=== PATIENT | female | born 1940 | race Caucasian/White ===

== ENCOUNTER 2017-09-04 07:07 | Inpatient (IN) | payer MEDICARE ==
[2017-09-04] MEDS ORDERED: Aspirin Low Dose CHEW TAB* 81 MG PO ONE (07:24)
[2017-09-04] MEDS: Nitroglycerin TAB 0.4 MG* 0.4 MG TAB SL ONE ×3 (08:00→08:11)
[2017-09-04 08:05] LABS: Hematocrit 40 % (35-47); Hemoglobin 13.6 g/dl (12.0-16.0); Mean Corpuscular HGB Conc 34 g/dl (31-36); Mean Corpuscular Hemoglobin 34 pg (27-31); Mean Corpuscular Volume 100 fL (80-97); Mean Platelet Volume 9 um3 (7.4-10.4); Red Blood Count 3.94 10^6/ul (4.0-5.4); Red Cell Distribution Width 13 % (10.5-15); White Blood Count 6.4 10^3/ul (3.5-10.8)
[2017-09-04] MEDS ORDERED: Al Hydrox/Mg Hydrox/Simet LIQ* 30 ML UDC PO ONE (08:20)
[2017-09-04] MEDS ORDERED: Acetaminophen TAB* 325 MG PO ONE (08:20)
[2017-09-04] MEDS ORDERED: Lidocaine 2% VISCOUS* 15 ML UDC PO ONE (08:20)
[2017-09-04 08:22] LABS: Albumin 3.9 g/dL (3.2-5.2); BUN/Creatinine Ratio 25.6 (8-20); Calcium 9.7 mg/dL (8.6-10.3); EGFR African American 78.5 (>60); Globulin 3.4 g/dL (2-4); Potassium 4.3 mmol/L (3.5-5.0); Total Bilirubin 0.6 mg/dL (0.2-1.0); Total Protein 7.3 g/dL (6.4-8.9)
[2017-09-04 08:23] LABS: Troponin I 0.03 ng/mL (<0.04)
--- NOTE | 2017-09-04 09:06 | RAD ---
INDICATION: Chest pain COMPARISON: Most recent comparison chest x-rays dated September 26, 2014 TECHNIQUE: Single AP portable view of the chest was obtained. FINDINGS: Image quality is compromised due to the relative inferiority of a portable chest x-ray. The heart and mediastinum exhibit normal size and contour. The lungs are grossly clear. There is no evidence of a large pleural effusion. Visualized bones are normal for the patient's age. IMPRESSION: No radiographic evidence for acute cardiopulmonary abnormality on this portable chest x-ray.
[2017-09-04] MEDS ORDERED: Morphine INJ* 2 MG/ML 1 ML CARPUJECT IV ONE (09:09)
[2017-09-04] MEDS ORDERED: Ondansetron INJ* 2 MG/ML VIAL IV ONE (09:09)
[2017-09-04] MEDS ORDERED: Morphine INJ* 2 MG/ML 1 ML SYRINGE (TWO MG - NEW SYRINGE VERSION) ONE (09:16)
--- NOTE | 2017-09-04 11:21 | ADMNOTE ---
Subjective Date of Service: 09/04/17 Interval History: ADMISSION HISTORY AND PHYSICAL EXAM: Allergies Allergy/AdvReac Type Severity Reaction Status Date / Time MED FOR STRESS TEST Allergy Tachycardia Uncoded 01/28/17 13:39 Home Medications Medication Instructions Recorded Confirmed Type Ascorbic Acid TAB* [Vitamin C 500 mg PO DAILY 09/26/14 09/26/14 History TAB*] Aspirin Low Dose CHEW TAB* 81 mg PO DAILY 09/26/14 09/26/14 History [Aspirin Low Dose TAB*] B-Complex W/ Folic Acid [B Complex] 1 tab PO DAILY 09/26/14 09/26/14 History Levothyroxine TAB* [Synthroid 75 75 mcg PO 0800 09/26/14 09/26/14 History MCG TAB*] Multiple Vitamin [Multivitamins] 1 cap PO DAILY 09/26/14 09/26/14 History HPI: Patient awoke at about 6 AM today to use the BR and felt epigastric discomfort. No assoc sx's. Pain now level 0.5. Never had similar pain before. She does frantz chi, golfs, and walks. Family History: Findings - Mother age 78 afater back surgery, father age 91 of prostate ca. 4 sibs A&W. Social History: Findings - Quit smoking > 30 yrs ago. No alcohol abuse. Review of Systems - Measurements Intake and Output: Intake and Output Last 24 Hours 09/02/17 09/03/17 09/04/17 09/05/17 06:59 06:59 06:59 06:59 Weight 145 lb - Review of Systems Constitutional Symptoms: Negative: Weight Gain, Weight Loss, Weakness, Fatigue, Fever, Night Sweats, Unexplained Falls, Other Dermatology: Positive: Normal HEENT: Positive: Normal Eyes: Positive: Normal Thyroid: Positive: Primary Hypothyroidism Pulmonary: Positive: Normal Cardiology: Positive: Chest Pain Gastroenterology: Positive: Normal Genital - Urinary: Positive: Normal Genitourinay - Female: Positive: Menopause Musculoskeletal: Negative: Joint Pain, Joint Stiffness, Arthritis, Osteoporosis, Low Back Pain , Sciatica, Joint Deformities, Kyphoscoliosis, Other Endocrinology: Positive: Thyroid Problems Hematologic/Lymphatic: Negative: Anemia, Easy Brusing, Hx Leukemia, Hx Lymphoma, Use of Anticoagulant, Use of Antiplatelet Drugs, Other Neurology: Positive: Normal Psychiatry: Positive: Normal Allergic/Immunologic: Negative: Hx Anaphylaxis, Hx Angioedema, Hx Environmental, Hx Seasonal, Athsma, Hx HIV, Immunocompromise, Swollen Glands LymphNodes, Other Objective Vital Signs 09/04/17 09/04/17 09/04/17 07:11 07:17 07:19 Temperature 98.5 F Pulse Rate 84 87 Respiratory 20 15 Rate Blood Pressure 178/101 152/85 (mmHg) O2 Sat by Pulse 97 95 Oximetry 09/04/17 09/04/17 09/04/17 07:30 07:39 08:00 Temperature Pulse Rate 83 83 82 Respiratory 16 19 Rate Blood Pressure 165/83 150/83 (mmHg) O2 Sat by Pulse 97 97 Oximetry 09/04/17 09/04/17 09/04/17 08:08 08:30 09:00 Temperature Pulse Rate 86 85 77 Respiratory 14 14 13 Rate Blood Pressure 124/78 112/61 117/69 (mmHg) O2 Sat by Pulse 95 95 96 Oximetry 09/04/17 09/04/17 09/04/17 09:30 10:00 10:07 Temperature Pulse Rate 79 80 Respiratory 16 20 18 Rate Blood Pressure 111/56 121/71 (mmHg) O2 Sat by Pulse 96 97 Oximetry 09/04/17 09/04/17 09/04/17 10:30 11:00 11:03 Temperature Pulse Rate 75 78 85 Respiratory 17 Rate Blood Pressure 130/76 146/66 (mmHg) O2 Sat by Pulse 97 98 97 Oximetry Oxygen Devices in Use Now: None Appearance: Alert, partly up on ED stretcher. In good spirits. Looks comfortable. Eyes: No Scleral Icterus Neck: NL Appearance and Movements; NL JVP, No Thyroid Enlargement, Masses Respiratory: Symmetrical Chest Expansion and Respiratory Effort, Clear to Auscultation, Clear to Percussion Cardiovascular: NL Sounds; No Murmurs; No JVD, RRR, No Edema, - Abdominal: NL Sounds; No Tenderness; No Distention, No Hepatosplenomegaly, - - no abd or epigastric tenderness Extremities: No Edema, No Clubbing, Cyanosis, - Skin: No Rash or Ulcers, No Nodules or Sclerosis, - Neurological: Alert and Oriented x 3, NL Sensation Result Diagrams: 09/04/17 07:56 09/04/17 07:56 Assess/Plan/Problems-Billing Assessment: - Patient Problems (1) Elevated troponin Current Visit: Yes Status: Acute Code(s): R74.8 - ABNORMAL LEVELS OF OTHER SERUM ENZYMES SNOMED Code(s): 801672935 Comment: LBBB dates to 2010. Discuss[address] with Dr[address] Solomon. Clinically not a STEMI. Echo in AM. Depending on third troponin, may need cardiac cath or echo. Continue ASA which she takes at night. She took 2 extra just before coming to the ED. (2) HTN (hypertension) Current Visit: Yes Status: Acute Code(s): I10 - ESSENTIAL (PRIMARY) HYPERTENSION SNOMED Code(s): 48965277 Comment: Continue irbesartran which she takes at night. (3) History of hypothyroidism Current Visit: No Status: Chronic Code(s): Z86.39 - PERSONAL HISTORY OF ENDO , NUTRITIONAL AND METABOLIC DISEASE SNOMED Code(s): 182694097 Comment: Continue levothyroxine. TSH wnl 09/01/17. 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
[2017-09-04] MEDS ORDERED: Aspirin Low Dose CHEW TAB* 81 MG PO SCH (12:00)
[2017-09-04] MEDS ORDERED: Enoxaparin(*) 40 MG/0.4 ML SYR SUBCUT SCH (12:00)
[2017-09-04] MEDS ORDERED: Levothyroxine TAB* 75 MCG TAB PO ONE (12:00)
[2017-09-04] MEDS ORDERED: Losartan TAB* 25 MG PO ONE (14:31)
[2017-09-04] MEDS ORDERED: Metoprolol Tartrate TAB* 25 MG PO SCH (14:45)
[2017-09-04] MEDS ORDERED: Heparin VIAL(*) 5000 UNITS/ML VIAL (FIVE THOUSAND) IV SCH (15:00)
[2017-09-04] MEDS: Atorvastatin* 80 MG TAB PO SCH (15:10)
[2017-09-04 15:30] LABS: Hematocrit 39 % (35-47); Hemoglobin 12.8 g/dl (12.0-16.0); Mean Corpuscular HGB Conc 33 g/dl (31-36); Mean Corpuscular Hemoglobin 34 pg (27-31); Mean Corpuscular Volume 102 fL (80-97); Mean Platelet Volume 9 um3 (7.4-10.4); Red Blood Count 3.78 10^6/ul (4.0-5.4); Red Cell Distribution Width 13 % (10.5-15); White Blood Count 9.1 10^3/ul (3.5-10.8)
[2017-09-04] MEDS: Heparin DRIP 25,000 UNITS(*) 25,000 UNITS/500 ML BAG IVPB SCH (15:35)
[2017-09-04] MEDS ORDERED: Metoprolol Tartrate TAB* 25 MG PO ONE (15:54)
[2017-09-04] MEDS: Nitroglycerin 0.4 MG/HR PATCH* (10 MG) TRANSDERM SCH (16:10)
--- NOTE | 2017-09-04 18:01 | ED ---
Danyelle Tinoco Edward, scribed for Garrett Flores MD on 09/04/17 at 0724 . HPI Chest Pain - HPI Summary HPI Summary: 76 y/o female BIBA c/o mild CP described as a pressure starting at 05:45 this morning. The pain is rated 2/10 in severity currently. Pt went up to use the bathroom when she first noticed it. The pain is not aggravated or alleviated by anything. Pt took 2 ASA this morning after noticing the pain. Pt states it "feels like indigestion". Denies SOB, ABD pain, nausea. The pain does not radiate to the back or shoulders. Pt also c/o high blood pressure earlier this morning. PMHx CVA. FHx heart disease on the pt's mother's side. - History of Current Complaint Hx Obtained From: Patient Onset/Duration: Started Hours Ago, Still Present Timing: Constant Initial Severity: Mild Current Severity: Mild Chest Pain Location: Mid Sternal Chest Pain Radiates: No Character: Pressure/Squeezing Aggravating Factor(s): Nothing Alleviating Factor(s): Nothing Associated Signs and Symptoms: Positive: Chest Pain - Allergy/Home Medications Allergies/Adverse Reactions: Allergies Allergy/AdvReac Type Severity Reaction Status Date / Time MED FOR STRESS TEST Allergy Tachycardia Uncoded 01/28/17 13:39 PMH/Surg Hx/FS Hx/Imm Hx Previously Healthy: No Endocrine/Hematology History: Reports: Hx Thyroid Disease - hypothyroid Denies: Hx Diabetes Cardiovascular History: Reports: Hx Hypertension, Other Cardiovascular Problems/ Disorders - BBB Denies: Hx Pacemaker/ICD Respiratory History: Denies: Hx Asthma GI History: Reports: Other GI Disorders - constipation, appy Sensory History: Reports: Hx Contacts or Glasses Denies: Hx Hearing Aid Opthamlomology History: Reports: Hx Contacts or Glasses Neurological History: Reports: Hx CVA - collapsed artery, L side thalamus Psychiatric History: Denies: Hx Panic Disorder - Cancer History Cancer Type, Location and Year: 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 CYST - REMOVED FROM BACK - Family History Known Family History: Positive: Cardiac Disease - Mother's side, Other - Prostate CA - Social History Alcohol Use: Occasionally Hx Substance Use: No Substance Use Type: Reports: None Hx Tobacco Use: Yes Smoking Status (MU): Former Smoker Type: Cigarettes Have You Smoked in the Last Year: No Review of Systems Negative: Fever, Chills Negative: Erythema Negative: Sore Throat Positive: Chest Pain Negative: Shortness Of Breath, Cough Negative: Abdominal Pain, Vomiting, Nausea Negative: dysuria, hematuria Negative: Myalgia, Edema Negative: Rash Neurological: Other - Negative dizziness All Other Systems Reviewed And Are Negative: Yes Physical Exam - Summary Physical Exam Summary: Constitutional: Well-developed, Well-nourished, Alert. (-) Distressed Skin: Warm, Dry HENT: Normocephalic; Atraumatic Eyes: Conjunctiva normal Neck: Musculoskeletal ROM normal neck. (-) JVD, (-) Stridor, (-) Tracheal deviation Cardio: Rhythm regular, rate normal, Heart sounds normal; Intact distal pulses; The pedal pulses are 2+ and symmetric. Radial pulses are 2+ and symmetric. (-) Murmur Pulmonary/Chest wall: Effort normal. (-) Respiratory distress, (-) Wheezes, (-) Rales Abd: Soft, (-) Tenderness, (-) Distension, (-) Guarding, (-) Rebound Musculoskeletal: (-) Edema Lymph: (-) Cervical adenopathy Neuro: Alert, Oriented x3 Psych: Mood and affect Normal Triage Information Reviewed: Yes Vital Signs Reviewed: Yes Diagnostics - Laboratory Result Diagrams: 09/04/17 07:56 09/04/17 07:56 Lab Statement: Any lab studies that have been ordered have been reviewed, and results considered in the medical decision making process. - Radiology CXR Xray Interpretation: No Acute Changes - NAD Radiology Interpretation Completed By: ED Physician - Additional Comments Diagnostic Additional Comments: EKG - 07:28 - SR @ 78 BPM. LBBB. Negative Sgarbossa's criteria. EKG 2 - 09:56 - SR @ 74 BPM. LBBB. NO STEMI. Re-Evaluation - Re-Evaluation 1 Re-Evaluation Time: 09:07 Change: Unchanged - No relief with GI cocktail, no relief with NTG. Pressure still 2/10. Chest Pain Course/Dx - Course Assessment/Plan: 76 y/o female BIBA c/o mild CP described as a pressure starting at 05:45 this morning. The pain is rated 2/10 in severity currently. Pt went up to use the bathroom when she first noticed it. The pain is not aggravated or alleviated by anything. Pt took 2 ASA this morning after noticing the pain. Pt states it "feels like indigestion". Denies SOB, ABD pain, nausea. The pain does not radiate to the back or shoulders. Pt also c/o high blood pressure earlier this morning. PMHx CVA. EKG - 07:28 - SR @ 78 BPM. LBBB. Negative Sgarbossa's criteria. CXR shows no acute disease. Dr. Metz will see the pt in the ED. EKG 2 - 09:56 - SR @ 74 BPM. LBBB. NO STEMI. Pt admitted to [facility] by Dr. Metz at 09:30. - Diagnoses Provider Diagnoses: Chest pain, unspecified - Provider Notifications Discussed Care Of Patient With: Luis Daniel Metz Time Discussed With Above Provider: 09:50 Instructed by Provider To: MD Will See In ED - and requested 2nd EKG Discharge - Discharge Plan Condition: Stable Disposition: ADMITTED TO [facility] Referrals: Louisa Gamez MD [Primary Care Provider] - The documentation as recorded by the Danyelle cooper Edward accurately reflects the service I personally performed and the decisions made by , Garrett Flores MD.
[2017-09-04] MEDS ORDERED: Losartan TAB* 25 MG PO SCH ×2 (21:00)
[2017-09-04] MEDS: Metoprolol Tartrate TAB* 25 MG PO SCH (21:52)
[2017-09-04] MEDS: Losartan TAB* 25 MG PO SCH (21:53)
[2017-09-04] MEDS: Aspirin Low Dose CHEW TAB* 81 MG PO SCH (21:53)
--- NOTE | 2017-09-05 00:18 | CONS ---
CC: Louisa Gamez MD; Dr. Metz. CONSULTATION REPORT: DATE OF CONSULT: 09/04/17 REASON FOR CONSULTATION: Elevated troponins. HISTORY OF PRESENT ILLNESS: Ms. Marina is a 76-year-old woman diagnosed with a left bundle-branch block approximately 6 years ago for which she underwent workup, but had no inducible ischemia at that time. The patient was in her usual state of health until she awoke at her usual time of 6 in the morning to go to the bathroom and she felt some pressure in the right upper chest. She described it as 2 to 3. She said she has had similar pain before, but this was worse and then she checked her blood pressure at home , and found it to be elevated at 170/80 and when she checked it repeatedly, it was going up. She says on her usual medication her blood pressure is typically in the 120 systolically. The patient denies any missed medicines or any new [id number] medications. No change in activity. No recent travel. She denied any associated symptoms with the discomfort. No diaphoresis, nausea, shortness of breath. She is unaware of any sleep issues. The patient called 911 and was given a combination of a GI cocktail aspirin, Tylenol and 3 sublingual nitroglycerin with complete resolution of the chest pressure. At the time I saw her, she has had some right axillary discomfort, it is different than the pressure she came in with and she describes it as mild. PAST MEDICAL HISTORY: The patient has a past medical history of hypertension, carotid stenosis (2013), stroke (left thalamic infarct) 2013 with slurred speech , numbness in the right palm and right corner of the mouth and right foot. hepatitis at age 12, tumor for which she had resection in the 5th finger, hypothyroid disease, macrocytosis per patient, PAST SURGICAL HISTORY: Includes section, appendectomy, tubal ligation. MEDICATIONS: Current inpatient medications include: 1. Aspirin 81 mg a day. 2. She received Lovenox x1. 3. Synthroid 75 mcg a day. 4. Cozaar 25 mg q.h.s. ALLERGIES: She has no known medication allergies. FAMILY HISTORY: Significant that her mother had a history of atherosclerotic heart disease that started in her 40's or 50s. She at the age 78. Her father had a history of prostate cancer and at age 91. She has 4 siblings with no known cardiac history that she is aware of. SOCIAL HISTORY: The patient stopped smoking over 30 years ago. No history of alcohol or recreational drug abuse. 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 REVIEW OF SYSTEMS: A 14-point review of systems was negative for recent fevers , chills, sweats. No recent orthopnea, PND. No recent change in bowel or bladder habits. No change in functional ability, was positive for rare right- sided pressure. She is vague about frequency duration or associated activities. She denies recent changes in vision, headaches. She admits to some nocturia and all other review of systems were unremarkable. PHYSICAL EXAMINATION: On exam, the patient is 5 feet 5 inches, weighs 151 pounds with a BMI of 25. Vitals: On arrival to the emergency department, blood pressure 178/101 with a pulse of 84, afebrile and oxygen saturation 97% on room air. Currently, blood pressure 132/73, pulse was 93, respiratory rate is 16, oxygen saturation room air 97% and temperature 97.9. General Appearance : Centripetally overweight older woman in no acute distress. Psychologically, calm, cooperative and pleasant. Neurologically, awake, alert, and oriented to person, place and time. Cranial nerves II through XII are intact. Grossly normal sensory motor function in the upper and lower extremities and normal gait. Skin warm and dry. No cyanosis or rashes. HEENT: Pupils were equal and round. Mucous membranes moist. Neck: Without increased JVP appreciated. Good carotid pulses. No audible bruits. Breath sounds were clear with good effort. No wheezes, rales or rhonchi. Coronary: S1 and S2 regular. Physiologically split S2 and no murmurs or rubs. Abdomen: Flat, active bowel sounds, soft and nontender. No hepatosplenomegaly or masses. Lower extremities are free of edema. She has 2+ posterior tibial pulses symmetrically and 2+ radial pulses symmetrically. DIAGNOSTIC STUDIES/LABORATORY DATA: Current EKG on arrival to the emergency room showed normal sinus rhythm, 78 beats per minute, QRS axis +15 with a left bundle- branch block, which is new compared with the most recent EKG in our system on 09/26/14, but per verbal report has been present for 6 years. The patient's chest x-ray done today was interpreted as clear lungs. Labs: White count 9.1, hemoglobin 12.8, hematocrit 39, mean cell volume 102, platelets 192 with increased eos and increased lymphs. Sodium 135, potassium 4.3, chloride 103, bicarb 26, BUN 22, creatinine 0.9, glucose 118. ALT of 17. Troponin #1 0.03, troponin #2 0.15, troponin #3 2.91. Today's TSH is 2.82. The most recent lipids in this system are from 09/27/14 showing total cholesterol 158, triglycerides 218, LDL cholesterol 72 and HDL cholesterol 43. More distant studies include: ECHO from 09/26/14, which showed some septal hypertrophy with an ejection fraction of 60% to 65% with abnormal diastolic filling. Mild mitral insufficiency, trace tricuspid insufficiency. Carotid Doppler from 09/26/14 showed moderate calcific plaque in the carotid bulbs bilaterally and proximal internal carotids little less than 50% on the right and 50% to 69% in the left internal carotid artery. Nuclear study from March 2011 ([employer]) showed an ejection fraction of 69% with normal perfusion and systolic function. ASSESSMENT/PLAN: In summary, Stephani Marina is a 76-year-old woman who awoke with right-sided chest pressure, found with rising troponins. She has atherosclerotic risk of a family history of early atherosclerotic heart disease in her mother, peripheral vascular disease involving the carotids with a stroke in 2013, she has mixed dyslipidemia and I do not have recent lipids and history of hypertension. I feel Ms. Marina is undergoing a myocardial infarction, LBBB prevents us from ECG evaluation but no evidence of a marked STEMI. By report, she has had a longstanding left bundle-branch block, but it was not present in 2014, so it is probably intermittent. I proposed that on the medical management and we continue with an aspirin, continue with heparin, either Lovenox or unfractionated, add a beta anmol with an aim of getting her heart rate in the 60s as well as better blood pressure control. I agree with continuation of ARB and I would empirically start a statin in addition to getting her lipid status updated. I have advised her to stay rested. I would consider a nitroglycerin patch or paste for recurrent symptoms, and if she is at all unstable with waxing and waning discomfort, we could move her to the unit on a nitroglycerin drip. I would have a low index of taking her to the lab systems analyst, especially as her pain has come back. Thank you for allowing me to assist in this nice woman's care. [id number]/[facility] #: [id number] JULI
[2017-09-05] MEDS: Acetaminophen TAB* 325 MG PO PRN ×2 (01:00→07:33)
[2017-09-05 05:21] LABS: HDL Cholesterol 54.4 mg/dL
[2017-09-05] MEDS: Metoprolol Tartrate TAB* 25 MG PO SCH (07:33)
[2017-09-05] MEDS: Levothyroxine TAB* 75 MCG TAB PO SCH (07:33)
[2017-09-05] MEDS: Ascorbic Acid TAB* 500 MG PO SCH (07:33)
[2017-09-05] MEDS: Nitro Patch/OINT Remove PATCH OFF SCH (08:00)
--- NOTE | 2017-09-05 08:42 | PN ---
Subjective Date of Service: 09/05/17 Interval History: HOSPITALIST PROGRESS NOTE Patient seen and examined at bedside. She feels better today. Chest pain is resolved, denies dyspnea. Family History: Unchanged from Admission Social History: Unchanged from Admission Past Medical History: Unchanged from Admission Objective Active Medications: Acetaminophen (Tylenol Tab*) 650 mg PO Q4H PRN PRN Reason: FEVER/HEADACHE Last Admin: 09/05/17 07:33 Dose: 650 mg Ascorbic Acid (Vitamin C Tab*) 500 mg PO DAILY [facility] Last Admin: 09/05/17 07:33 Dose: 500 mg Aspirin (Aspirin Low Dose Tab*) 81 mg PO BEDTIME [facility] Last Admin: 09/04/17 21:53 Dose: 81 mg Atorvastatin Calcium (Lipitor*) 80 mg PO 1700 [facility] Last Admin: 09/04/17 15:10 Dose: 80 mg Heparin Sodium (Porcine) (Heparin Vial(*)) 0 units IV .PER PROTOCOL [facility] PRN Reason: Protocol Last Admin: 09/04/17 15:34 Dose: 5,100 units Heparin Sodium/Dextrose (Heparin Drip 25,000 Units(*)) 25,000 units in 500 mls @ 0 mls/hr IVPB .PER RATE MARIO; Per Protocol PRN Reason: Protocol Last Admin: 09/04/17 15:35 Dose: 22 mls/hr Levothyroxine Sodium (Synthroid Tab*) 75 mcg PO 0800 [facility] Last Admin: 09/05/17 07:33 Dose: 75 mcg Losartan Potassium (Cozaar Tab*) 25 mg PO BEDTIME [facility] Last Admin: 09/04/17 21:53 Dose: 25 mg Metoprolol Tartrate (Lopressor Tab*) 25 mg PO Q12HR [facility] Last Admin: 09/05/17 07:33 Dose: 25 mg Nitroglycerin (Nitroglycerin 10 Mg Patch*) 1 patch TRANSDERM 1999 [facility] Pharmacy Profile Note (Nitro Patch/Oint Remove*) 1 note PATCH OFF 0800 [facility] Vital Signs 09/05/17 09/05/17 07:33 08:00 Temperature 98.2 F Pulse Rate 77 Respiratory 16 16 Rate Blood Pressure 119/68 (mmHg) O2 Sat by Pulse 94 Oximetry Oxygen Devices in Use Now: None Appearance: Pleasant lady sitting up in bed in NAD. Eyes: No Scleral Icterus Ears/Nose/Mouth/Throat: Mucous Membranes Moist Neck: Trachea Midline Respiratory: Symmetrical Chest Expansion and Respiratory Effort, Clear to Auscultation Cardiovascular: RRR - Normal S1 and S2 Extremities: No Edema Neurological: Alert and Oriented x 3, NL Muscle Strength and Tone Lines/Tubes/Other Access: Clean, Dry and Intact Peripheral IV Nutrition: Taking PO's Result Diagrams: 09/04/17 15:23 09/04/17 15:23 Assess/Plan/Problems-Billing Assessment: Mrs. Marina is a 76yo F with PMH of HTN, carotid stenosis, CVA, hypothyroidism, LBBB, who presented to ED with c/o chest pain, found to have NSTEMI. - Patient Problems (1) NSTEMI (non-ST elevated myocardial infarction) Comment: - Cardiology input appreciated. - Continue Aspirin, heparin, metoprolol, statin, ARB, and nitrates. - Awaiting echo. - Plan for cardiac cath tomorrow. (2) HTN (hypertension) Comment: - Controlled. - Continue ARB and metoprolol. (3) History of hypothyroidism Comment: - Continue levothyroxine. TSH 2.8 09/01/17. (4) DVT prophylaxis Comment: - Heparin drip. (5) Full code status Status and Disposition: Inpatient for management of NSTEMI.
--- NOTE | 2017-09-05 09:28 | ECHO ---
Patient: RHONDA KIMBROUGH [facility] Rec#: [id number] : 1940 Date: 09/05/2017 Age: 76y Height: 165.1 cm / 65.0 in Weight: 68.5 kg / 151.0 lbs Sex: F BSA: 1.8 Room#: [facility] Admit Date#: 09/04/2017 Type: Inpatient Referring: Luis Daniel Metz MD Reading: Heidi Holguin MD Scaffolding Helper: Micheline Denton RN RDCS CC: Louisa Gamez MD Transthoracic Echocardiogram Indication: Acute coronary syndrome BP: 105/53 HR: 75 Rhythm: NSR Findings History: HTN, LBBB, hypothyroidism, carotid stenosis, CVA 2013, former smoker Technical Comments: The study quality is fair. The study is technically limited due to the patient's smoking history. Completed at 0912. Left Ventricle: The left ventricular chamber size is decreased. Mild concentric left ventricular hypertrophy is observed. There is increased basal septal hypertrophy noted without evidence of an increased gradient across the left ventricular outflow tract. Global left ventricular wall motion and contractility are within normal limits. There is normal left ventricular systolic function. The estimated ejection fraction is 55-60%. There is a left ventricular septal wall motion abnormality observed, possibly due to the presence of a left bundle branch block. Abnormal left ventricular diastolic filling is observed, consistent with impaired relaxation. Left Atrium: The left atrial chamber size is normal. Right Ventricle: The right ventricular chamber size and systolic function are within normal limits. Right Atrium: The right atrial cavity size is normal. Aortic Valve: The aortic valve is trileaflet. The aortic valve leaflets are mildly thickened. There is aortic annular calcification. There is no evidence of aortic regurgitation.Systolic jet noted between the RCC and NCC at the annulus on shorta axis view and seen on 3 and 5 chamber views as well. There is no evidence of aortic stenosis. Mitral Valve: Mild mitral annular calcification present. The mitral valve leaflets are mildly thickened. There is mild to moderate mitral regurgitation. predominantly posterior jet. There is no evidence of mitral stenosis. Tricuspid Valve: The tricuspid valve leaflets are normal. There is mild tricuspid regurgitation. No pulmonary hypertension is noted. There is no tricuspid stenosis. Pulmonic Valve: The pulmonic valve appears normal. There is a trace pulmonic regurgitation. There is no pulmonic stenosis. Pericardium: There is no significant pericardial effusion. A pericardial fat pad is visualized. Aorta: There is no dilatation of the ascending aorta. There is no dilatation of the aortic arch. There is no dilation of the aortic root. Pulmonary Artery: The main pulmonary artery appears normal. Venous: The inferior vena cava appears normal in size. There is a greater than 50% respiratory change in the inferior vena cava dimension. Conclusions Mild concentric left ventricular hypertrophy is observed. The left ventricular chamber size is decreased. There is increased basal septal hypertrophy noted without evidence of an increased gradient across the left ventricular outflow tract. There is a left ventricular septal wall motion abnormality observed, possibly due to the presence of a left bundle branch block. The estimated ejection fraction is 55-60%. Abnormal left ventricular diastolic filling is observed, consistent with impaired relaxation. The right ventricular chamber size and systolic function are within normal limits. The aortic valve leaflets are mildly thickened. Systolic jet seen on aortic annulus/membranous ventricular septum of uncertain significance, see text. There is mild to moderate mitral regurgitation. predominantly posterior jet. There is mild tricuspid regurgitation. Normal PA pressure. Compared with prior echo of 2013, EF previously 60-65%, the degree of MR has increased from mild. Measurements Name Value Normal Range RVIDd (AP) 2D 2.6 cm (0.9 - 2.6) RVDdMajor (2D) 2.8 cm (2.2 - 4.4) RAd ISD 4CH 3.9 cm (3.4 - 4.9) RA (A4C)W 3 cm (2.9 - 4.6) IVSd (2D) 1.1 cm (0.6 - 1) LVPWd (2D) 1 cm (0.6 - 1) LVIDd (2D) 3.3 cm (3.6 - 5.4) LVIDs (2D) 2.2 cm - LV FS (2D) 35 % (25 - 45) Aortic Annulus 1.7 cm (1.4 - 2.6) Ao root diameter (2D) 2.6 cm (2.1 - 3.5) Ascending Ao 3.1 cm (2.1 - 3.4) Aortic arch 2.2 cm (1.8 - 3.4) LA dimension (AP) 2D 3.2 cm (2.3 - 3.8) LAd ISD 4CH 3.9 cm (2.9 - 5.3) LA ISD 4CH W 3.2 cm (2.5 - 4.5) Name Value Normal Range LA ESV SP 4CH (A/L) 19.5 ml - LA ESV SP 2CH (A/L) 26.6 ml - LA ESV BP (A/L) 22.9 ml - LA ESV BP (A/L) index 13 ml/m2 - LA ESV SP 4CH (MOD) 18.1 ml - LA ESV SP 2CH (MOD) 24.6 ml - Name Value Normal Range MV E-wave Vmax 0.84 m/sec - MV deceleration time 265 msec - MV A-wave Vmax 1.1 m/sec - MV E:A ratio 0.74 ratio - LV septal e' Vmax 0.04 m/sec - LV lateral e' Vmax 0.06 m/sec - LV E:e' septal ratio 21 ratio - LV E:e' lateral ratio 14 ratio - Name Value Normal Range AV Vmax 1.5 m/sec - AV VTI 32.1 cm - AV peak gradient 9.4 mmHg - AV mean gradient 5.5 mmHg - LVOT Vmax 1.1 m/sec - LVOT VTI 22.3 cm - LVOT peak gradient 5 mmHg - LVOT mean gradient 3.2 mmHg - BRANDON Vmax 0.57 m/sec - Name Value Normal Range TR Vmax 2.5 m/sec - TR peak gradient 25 mmHg - RAP 3 mmHg - RVSP 28 mmHg - IVC diameter 1.6 cm - Name Value Normal Range PV Vmax 0.92 m/sec -
[2017-09-05] MEDS: Nitroglycerin 0.4 MG/HR PATCH* (10 MG) TRANSDERM SCH ×2 (11:20→20:59)
[2017-09-05 12:24] LABS: Hematocrit 36 % (35-47); Mean Corpuscular HGB Conc 33 g/dl (31-36); Mean Corpuscular Hemoglobin 34 pg (27-31); Mean Corpuscular Volume 102 fL (80-97); Mean Platelet Volume 9 um3 (7.4-10.4); Red Blood Count 3.51 10^6/ul (4.0-5.4); Red Cell Distribution Width 13 % (10.5-15); White Blood Count 10.1 10^3/ul (3.5-10.8)
--- NOTE | 2017-09-05 13:38 | PN ---
Subjective Date of Service: 09/05/17 - CC: right chest pressure Interval History: No chest or axillary pressure since yesterday. Poor sleep re: in hospital. No SOB or other new c/o. Medications Active Medications: Acetaminophen (Tylenol Tab*) 650 mg PO Q4H PRN PRN Reason: FEVER/HEADACHE Last Admin: 09/05/17 07:33 Dose: 650 mg Ascorbic Acid (Vitamin C Tab*) 500 mg PO DAILY [facility] Last Admin: 09/05/17 07:33 Dose: 500 mg Aspirin (Aspirin Low Dose Tab*) 81 mg PO BEDTIME [facility] Last Admin: 09/04/17 21:53 Dose: 81 mg Atorvastatin Calcium (Lipitor*) 80 mg PO 1700 [facility] Last Admin: 09/04/17 15:10 Dose: 80 mg Heparin Sodium (Porcine) (Heparin Vial(*)) 0 units IV .PER PROTOCOL [facility] PRN Reason: Protocol Last Admin: 09/04/17 15:34 Dose: 5,100 units Heparin Sodium/Dextrose (Heparin Drip 25,000 Units(*)) 25,000 units in 500 mls @ 0 mls/hr IVPB .PER RATE [facility]; Per Protocol PRN Reason: Protocol Stop: 09/06/17 06:00 Last Admin: 09/04/17 15:35 Dose: 22 mls/hr Sodium Chloride (Ns 0.9% 1000 Ml*) 1,000 mls @ 100 mls/hr IV .per rate [facility] Levothyroxine Sodium (Synthroid Tab*) 75 mcg PO 0800 [facility] Last Admin: 09/05/17 07:33 Dose: 75 mcg Losartan Potassium (Cozaar Tab*) 25 mg PO BEDTIME [facility] Last Admin: 09/04/17 21:53 Dose: 25 mg Metoprolol Tartrate (Lopressor Tab*) 50 mg PO BID [facility] Nitroglycerin (Nitroglycerin 10 Mg Patch*) 1 patch TRANSDERM 1999 [facility] Pharmacy Profile Note (Nitro Patch/Oint Remove*) 1 note PATCH OFF 0800 [facility] Last Admin: 09/05/17 08:00 Dose: 1 patch Objective Vital Signs: Temp Pulse Resp BP Pulse Ox 98.2 F 77 16 119/68 94 09/05/17 07:33 09/05/17 07:33 09/05/17 08:00 09/05/17 07:33 09/05/17 07:33 Oxygen Devices in Use Now: None Appearance: Older woman, seated, eating mashed potatoes and sandwich with white bread. No distress. Eyes: No Scleral Icterus, PERRLA Ears/Nose/Mouth/Throat: Clear Oropharnyx, Mucous Membranes Moist Neck: NL Appearance and Movements; NL JVP, Trachea Midline Respiratory: Symmetrical Chest Expansion and Respiratory Effort, Clear to Auscultation Cardiovascular: NL Sounds; No Murmurs; No JVD, RRR, No Edema Abdominal: NL Sounds; No Tenderness; No Distention Extremities: No Edema, No Clubbing, Cyanosis Skin: No Rash or Ulcers Neurological: Alert and Oriented x 3, NL Gait, NL Muscle Strength and Tone Lines/Tubes/Other Access: Clean, Dry and Intact Peripheral IV Laboratory Results: 09/05/17 12:09 09/04/17 15:23 APTT 104.1 seconds (26.0-36.3) H* 09/05/17 12:15 Total Bilirubin 0.60 mg/dL (0.2-1.0) 09/04/17 07:56 AST 19 U/L (13-39) 09/04/17 07:56 ALT 17 U/L (7-52) 09/04/17 07:56 Alkaline Phosphatase 74 U/L (34-104) 09/04/17 07:56 Total Protein 7.3 g/dL (6.4-8.9) 09/04/17 07:56 Albumin 3.9 g/dL (3.2-5.2) 09/04/17 07:56 Globulin 3.4 g/dL (2-4) 09/04/17 07:56 Albumin/Globulin Ratio 1.1 (1-3) 09/04/17 07:56 Triglycerides 141 mg/dL 09/05/17 04:43 Cholesterol 153 mg/dL 09/05/17 04:43 LDL Cholesterol 70 mg/dL 09/05/17 04:43 HDL Cholesterol 54.4 mg/dL 09/05/17 04:43 09/04/17 09/04/17 09/05/17 13:59 20:54 02:20 Troponin I 2.91 H* 7.36 H* 4.34 H* Diagnostic Imaging: ECHO today: normal EF, mild septal dysychrony, mild to moderate MR, posterior jet. EKG Data: Monitor: NSR Assessment/Plan 76 yo woman with ACS, right sided chest pressure and pain, elevated troponins, LBBB(old) and hx carotid plaque and prior small stroke. Chest pain free and troponins post peak with beta anmol, heparin, NTG patch and statins. Plan: Cath in AM, indications risks benefits and specifics of the procedure discussed in depth with the patient. Continue current medications. Additional recommendations post cath. Diet: will request a diet closer to Mediterranean/heart healthy.
[2017-09-05] MEDS: Atorvastatin* 80 MG TAB PO SCH (17:19)
[2017-09-05] MEDS: Metoprolol Tartrate TAB* 50 mg PO SCH (20:59)
[2017-09-05] MEDS: Losartan TAB* 25 MG PO SCH (20:59)
[2017-09-05] MEDS: Aspirin Low Dose CHEW TAB* 81 MG PO SCH (20:59)
[2017-09-05] MEDS: Heparin DRIP 25,000 UNITS(*) 25,000 UNITS/500 ML BAG IVPB SCH (22:54)
[2017-09-06] MEDS: Acetaminophen TAB* 325 MG PO PRN ×2 (01:51→05:52)
[2017-09-06] MEDS ORDERED: NS 0.9% 1000 ML* 1,000 ML IV SCH ×2 (07:00→10:00)
[2017-09-06] MEDS: Levothyroxine TAB* 75 MCG TAB PO SCH (08:10)
[2017-09-06] MEDS: Ascorbic Acid TAB* 500 MG PO SCH (08:10)
[2017-09-06] MEDS: Metoprolol Tartrate TAB* 50 mg PO SCH (08:10)
[2017-09-06] MEDS: Nitro Patch/OINT Remove PATCH OFF SCH (08:13)
[2017-09-06] MEDS ORDERED: fentaNYL* 50 MCG/ML 2 ML VIAL (100 MCG VIAL) ONE (08:17)
[2017-09-06] MEDS ORDERED: VERAPAMIL 2.5 MG/ML 4 ML VIAL ONE (08:17)
[2017-09-06] MEDS ORDERED: Heparin(*) 1000 UNIT/ML 10 ML VIAL CATH LAB IV ONE (08:17)
[2017-09-06] MEDS ORDERED: Lidocaine 1% INJ* 10 MG/ML 30 ML SDV ONE (08:18)
[2017-09-06] MEDS ORDERED: nitroGLYCERIN DRIP* 25,000 MCG/250 ML BTL ONE (08:18)
[2017-09-06] MEDS ORDERED: Iohexol 350 (CONTRAST) 200 ML MDV IV ONE (08:18)
[2017-09-06] MEDS ORDERED: Heparin 2 UNITS/ML IVPREMIX* 2,000 ML IV ONE (08:18)
[2017-09-06] MEDS ORDERED: Midazolam* 1 MG/ML 10 ML VIAL (10 MG) ONE (08:18)
--- NOTE | 2017-09-06 08:35 | PN ---
Subjective Date of Service: 09/06/17 Interval History: HOSPITALIST PROGRESS NOTE Patient seen and examined at bedside. She is anxious for her cath later today. No further episodes of chest pressure, denies dyspnea, OG is improved. Family History: Unchanged from Admission Social History: Unchanged from Admission Past Medical History: Unchanged from Admission Objective Active Medications: Acetaminophen (Tylenol Tab*) 650 mg PO Q4H PRN PRN Reason: FEVER/HEADACHE Last Admin: 09/06/17 05:52 Dose: 650 mg Ascorbic Acid (Vitamin C Tab*) 500 mg PO DAILY [facility] Last Admin: 09/06/17 08:10 Dose: 500 mg Aspirin (Aspirin Low Dose Tab*) 81 mg PO BEDTIME [facility] Last Admin: 09/05/17 20:59 Dose: 81 mg Atorvastatin Calcium (Lipitor*) 80 mg PO 1700 [facility] Last Admin: 09/05/17 17:19 Dose: 80 mg Sodium Chloride (Ns 0.9% 1000 Ml*) 1,000 mls @ 100 mls/hr IV .per rate [facility] Last Admin: 09/06/17 06:33 Dose: 100 mls/hr Levothyroxine Sodium (Synthroid Tab*) 75 mcg PO 0800 [facility] Last Admin: 09/06/17 08:10 Dose: 75 mcg Losartan Potassium (Cozaar Tab*) 25 mg PO BEDTIME [facility] Last Admin: 09/05/17 20:59 Dose: 25 mg Metoprolol Tartrate (Lopressor Tab*) 50 mg PO BID [facility] Last Admin: 09/06/17 08:10 Dose: 50 mg Nitroglycerin (Nitroglycerin 10 Mg Patch*) 1 patch TRANSDERM 1999 [facility] Last Admin: 09/05/17 20:59 Dose: 1 patch Pharmacy Profile Note (Nitro Patch/Oint Remove*) 1 note PATCH OFF 0800 [facility] Last Admin: 09/06/17 08:13 Dose: 1 patch Vital Signs 09/05/17 09/05/17 09/06/17 19:29 23:19 03:19 Temperature 98.3 F 98.4 F Pulse Rate 71 65 Respiratory 15 16 16 Rate Blood Pressure 99/58 105/64 (mmHg) O2 Sat by Pulse 97 96 Oximetry Oxygen Devices in Use Now: None Appearance: Pleasant lady sitting up in bed in NAD. Eyes: No Scleral Icterus Ears/Nose/Mouth/Throat: Mucous Membranes Moist Neck: Trachea Midline Respiratory: Symmetrical Chest Expansion and Respiratory Effort, Clear to Auscultation Cardiovascular: NL Sounds; No Murmurs; No JVD, RRR Extremities: No Edema Neurological: Alert and Oriented x 3, NL Muscle Strength and Tone Lines/Tubes/Other Access: Clean, Dry and Intact Peripheral IV Result Diagrams: 09/05/17 12:09 09/04/17 15:23 Assess/Plan/Problems-Billing Assessment: Mrs. Marina is a 76yo F with PMH of HTN, carotid stenosis, CVA, hypothyroidism, LBBB, who presented to ED with c/o chest pain, found to have NSTEMI. - Patient Problems (1) NSTEMI (non-ST elevated myocardial infarction) Comment: - Cardiology input appreciated. - Continue Aspirin, metoprolol, statin, ARB, and nitrates. - Echo showed LV septal wall motion abnormalities likely associated with LBBB, EF 55-60%. - Heparin was d/c in preparation for cardiac cath today. (2) HTN (hypertension) Comment: - Controlled. - Continue ARB and metoprolol. (3) History of hypothyroidism Comment: - Continue levothyroxine. TSH 2.8 09/01/17. (4) DVT prophylaxis Comment: - SCD. (5) Full code status Status and Disposition: Inpatient for management of NSTEMI.
[2017-09-06] MEDS ORDERED: Adenosine* 3 MG/ML VIAL ONE (09:24)
[2017-09-06] MEDS ORDERED: NS 0.9% 1000 ML* 1,000 ML IV PRN (10:03)
[2017-09-06] MEDS: Diltiazem CD CAP* 120 MG PO SCH (13:51)
--- NOTE | 2017-09-06 14:59 | RAD ---
Indication: Chest pain Comparison: Chest x-ray dated September 06, 2017 Technique: Following the administration of 13 mCi of Xenon gas, ventilation images were obtained in multiple projections. Following the administration of 6.0 mCi of Tc-99m macroaggregated albumin, perfusion images were obtained in multiple projections. Report: The ventilation pattern is uniform with no evidence of air trapping. Negative for segmental or subsegmental perfusion defects. IMPRESSION: No evidence for pulmonary embolism.
--- NOTE | 2017-09-06 15:10 | RAD ---
HISTORY: Chest pain COMPARISONS: September 04, 2017 VIEWS: 4: Frontal dual-energy and lateral views of the chest. FINDINGS: CARDIOMEDIASTINAL SILHOUETTE: The cardiomediastinal silhouette is normal. JOHANNA: The johanna are normal. PLEURA: The costophrenic angles are sharp. No pleural abnormalities are noted. LUNG PARENCHYMA: The lungs are clear. ABDOMEN: The upper abdomen is clear. There is no subphrenic gas. BONES AND SOFT TISSUES: No bone or soft tissue abnormalities are noted. OTHER: None. IMPRESSION: NO ACTIVE CARDIOPULMONARY DISEASE.
[2017-09-06] MEDS: Atorvastatin* 80 MG TAB PO SCH (16:44)
[2017-09-06] MEDS: Losartan TAB* 25 MG PO SCH (21:03)
[2017-09-06] MEDS: Aspirin Low Dose CHEW TAB* 81 MG PO SCH (21:03)
[2017-09-07] MEDS: Nitroglycerin 0.4 MG/HR PATCH* (10 MG) TRANSDERM SCH (01:48)
[2017-09-07 06:21] LABS: BUN/Creatinine Ratio 22.5 (8-20); Calcium 9.6 mg/dL (8.6-10.3); EGFR African American 103.2 (>60); EGFR Non-African American 80.3 (>60); Potassium 4.1 mmol/L (3.5-5.0)
[2017-09-07 07:33] VITALS: BP 118/55
[2017-09-07] MEDS: Ascorbic Acid TAB* 500 MG PO SCH (07:57)
[2017-09-07] MEDS: Levothyroxine TAB* 75 MCG TAB PO SCH (07:57)
[2017-09-07] MEDS: Diltiazem CD CAP* 120 MG PO SCH (07:58)
[2017-09-07] MEDS ORDERED: Nitroglycerin 0.4 MG/HR PATCH* (10 MG) TRANSDERM SCH (08:00)
--- NOTE | 2017-09-07 10:29 | CATH ---
CC: Dr. Louisa Gamez; Dr. Heidi Holguin * CARDIAC CATHETERIZATION REPORT: DATE OF PROCEDURE: 09/06/17 - ROOM #442 INDICATION FOR THE PROCEDURE: The patient with abnormal troponins suggesting acute coronary syndrome, possible non-ST elevation myocardial infarction now to assess for the presence of coronary artery disease in a patient with chronic left bundle- branch block and normal LV function on echo. PROCEDURE: Left heart catheterization, left ventriculography, coronary arteriography. The patient was interviewed on the floor of the hospital with the risks and benefits were explained. The patient was examined. She understood the risks and wished to proceed. APPROACH: Right radial artery (assessed by ultrasound on the floor of the hospital to be an acceptable approach. The artery was cannulated in the pharmacy laboratory technician under ultrasound guidance). RADIAL ARTERY MEDICATIONS: 3000 units of heparin, 300 mcg of nitroglycerin, 3 mg of verapamil intra-arterial. SHEATH: 6-Nauruan [place] sheath. DIAGNOSTIC CATHETERS: A 5-Nauruan TIG 4.0 curved diagnostic catheter for the left coronary artery and a 4.0 FR 5-Nauruan catheter for the right coronary artery. LEFT VENTRICULOGRAPHY: Performed utilizing a 5-Nauruan PIG Performa radial catheter with a total of 24 cc of Omnipaque dye at a rate of 12 cc/sec. FRACTIONAL FLOW RESERVE ANALYSIS: Performed with an additional 2000 units of heparin to total of 5000 units of heparin, utilizing a COMET pressure wire and a 6-Nauruan FL 3.5 curved guide catheter. CLOSURE TECHNIQUE: Vasc band. RESULTS: HEMODYNAMIC DATA: Left heart catheterization - central aortic pressure recorded at 113/53 with mean 81, left ventricular pressure 112 over the left ventricular end- diastolic pressure of 18. LEFT VENTRICULOGRAPHY: Performed in the [place]STA projection revealed symmetrical contraction of the left ventricle with no focal wall motion abnormalities. Overall left ventricular ejection fraction estimated at 60%. CORONARY ARTERIOGRAPHY: A. Left coronary artery: 1. Left main. There was a distal 30% to 35% narrowing of the left main in its worst view, it appeared less in other views. 2. Left anterior descending artery. The proximal portion of left anterior descending artery had mild luminal irregularities with a narrowing of approximately 20%. The midportion of the left anterior descending artery had calcification particularly at the point of bifurcation with a second diagonal branch. The ostium of the second diagonal branch appeared to have a 45% to 50% hazy narrowing as did the continuation of the left anterior descending artery just after this point. 3. Circumflex artery - a nondominant vessel supplying a first obtuse marginal branch followed by a thin second obtuse marginal branch and ending in several low lying posterior left ventricular branches. The first obtuse marginal branch had a 50% to 55% mid lesion. Of note, this vessel is small caliber in nature at best 1.5 to 1.7 mm. The more proximal portion of this obtuse marginal branch had a 30% narrowing seen. There was no other significant lesions seen throughout the course of the vessel. The distal vessels were small in caliber. B. Right coronary artery - a dominant vessel supplying the PDA and continuing on to two posterior left ventricular branches, after which the artery seems to taper abruptly followed by a very thin posterior left ventricular branch. It is difficult to say whether or not there is a total occlusion of the artery in this area, but clearly it tapered quickly in its distal most portion. There were mild luminal irregularities in the proximal portion of the left anterior descending artery of 30%. The mid portion had 25% to 30%. OVERALL ASSESSMENT: Normal left ventricular systolic function with no significant stenotic coronary artery disease in the major branches of the arteries. The distal right coronary artery past the PDA and a past two posterior left ventricular branches seem to abruptly start tapering and may represent a total occlusion to a very small caliber distal vessel. It is difficult at best to see this and there is no evidence of collateralization to a distal vessel. This may just be tapering of the vessel. In the presence of overall normal left ventricular systolic function, clearly I do not believe this is a total occlusion of any large caliber branch. I would strongly urge medical management in general with continued risk factor management including blood pressure control, cholesterol control. Consideration for placing her on a drug to prevent spasm may be helpful given the fact that her symptoms occurred when she woke in the morning and was still in a lying position not having done any type of exertional activity. [id number]/[facility] #: [id number] JULI
[2017-09-07] MEDS ORDERED: Nitro Patch/OINT Remove PATCH OFF SCH (20:00)
--- NOTE | 2017-09-08 02:06 | DS ---
CC: Dr. Gamez; Dr. Holguin * DISCHARGE SUMMARY: DATE OF ADMISSION: 09/04/17 DATE OF DISCHARGE: 09/07/17 PRIMARY CARE PROVIDER: Dr. Gamez. CONSULTING SPECIAL SERVICES COORDINATOR: Dr. Holguin. DISCHARGE DIAGNOSIS: Non-ST elevation myocardial infarction. SECONDARY DIAGNOSES: 1. Hypertension. 2. Carotid stenosis. 3. History of cerebrovascular accident. 4. Hypothyroidism. 5. Left bundle-branch block. ALLERGIES: To MEDICATION USED DURING PHARMACOLOGICAL STRESS TEST. MEDICATIONS: 1. Clobetasol 0.05% ointment topical q.a.m. as needed for rash. 2. Irbesartan 75 mg p.o. at bedtime. 3. Magnesium 200 mg p.o. q.p.m. 4. CoQ10, 200 mg p.o. q.a.m. 5. Aspirin low dose 81 mg p.o. daily. 6. Multivitamin 1 capsule p.o. daily. 7. Levothyroxine 100 mcg p.o. daily. 8. Vitamin B complex with folic acid 1 tablet p.o. q.p.m. 9. Ascorbic acid 500 mg p.o. q.p.m. New medications: 1. Diltiazem CD 120 mg p.o. daily. 2. Atorvastatin 40 mg p.o. at bedtime. HOSPITAL COURSE: Ms. Marina is a 76-year-old lady with a past medical history as stated above that presents to the emergency room with complaint of right- sided chest pressure/pain radiating to the axillary area. Her initial troponin in the emergency room was 0.03 and she was admitted for further evaluation and workup. While in telemetry, she had no significant arrhythmias, but her troponin trended up and it peaked at 7.36. She was seen in consultation by Cardiology (Dr. Holguin) and her impression was that the patient had a myocardial infarction. Her old left bundle-branch block prevented any EKG evaluation, but she had no evidence of a marked ST elevation RI. She recommended medical management with aspirin, heparin, beta-anmol, continuation of her ARB, and addition of a statin. She also recommended nitro patch and if her symptoms persisted, to transition her to a nitro drip. The patient had resolution of her symptoms. She had a transthoracic echocardiogram that showed an ejection fraction of 55% to 60% with mild concentric LVH, increased basal septal hypertrophy, but no left ventricular outflow tract gradient. There was left ventricular septal wall motion abnormality possibly due to the presence of a left bundle-branch block. The patient also had a V/Q scan that was negative for pulmonary embolism. On 09/06/17, she underwent a cardiac catheterization with Dr. Velazquez. She was found to have normal left ventricular systolic function with no significant stenotic coronary artery disease in the major branches of the arteries. The distal right coronary artery past the PDA seemed to abruptly start tapering and may represent a total occlusion to a very small caliber distal vessel. It is difficult at best to see this and there is no evidence of collateralization to a distal vessel. This may just be tapering of the vessel, in the presence of overall normal left ventricular systolic function, Dr. Velazquez did not believe this was a total occlusion of any large caliber branch. His recommendation was for medical management in general with continued risk factor management including blood pressure control and cholesterol control. He also felt that the patient be better served with a calcium channel anmol like Cardizem instead of a beta-anmol as this could prevent coronary spasm and may be helpful given the fact that her symptoms occurred when she woke in the morning and was still in a lying position, not having done any type of exertional activity. The patient did well post cath with no recurrence of her chest pain. She was educated about her new medications including diltiazem and atorvastatin and she was advised to observe symptoms of muscle ache. She will also follow up with Dr. Gamez and she should have a CPK and LFTs monitored as outpatient as she is now on a combination of a statin and calcium channel anmol. The patient is medically stable. She will be discharged home today to follow up with Dr. Velazquez on 09/13/17 at 11 a.m. PHYSICAL EXAMINATION: Vital Signs: Temperature 98.3, heart rate is 68, respiratory rate is 18, oxygen saturation 98% on room air, blood pressure is 118 /55. General: The patient is a pleasant lady sitting up in the chair in no acute distress. CVS: Normal S1, S2. Regular rate and rhythm. Chest: Breath sounds present bilaterally with no added sounds. Extremities: No edema. The patient has good pulse on her right wrist with no signs of significant hematoma. Neuro: She is alert, awake, and oriented x3. Able to move all 4 extremities. DIET: Heart-healthy diet. ACTIVITY: The patient received education about limitations after cardiac cath. STATUS WHILE IN THE HOSPITAL: Inpatient. DISPOSITION: To home. Please keep in mind this is a summarized version of this patient's hospital stay. If you need more information, please feel free to call me at [phone] or please obtain the full medical records. TIME SPENT: Approximately 45 minutes was spent to complete this discharge. [id number]/[facility] #: [id number] JULI
== END 2017-09-07 11:11 | disposition home or self-care (01) | DRG 282 ==
LOC: ED 07:07 → MEDTELE 11:39
PROVIDERS: ADMIT Internal Medicine; ATTEND Internal Medicine
PROC: 4A023N7 Measurement of Cardiac Sampling and Pressure, Left Heart, Percutaneous Approach (ICD-10-PCS; 2017-09-06)
PROC: B2151ZZ Fluoroscopy of Left Heart using Low Osmolar Contrast (ICD-10-PCS; 2017-09-06)
PROC: B2111ZZ Fluoroscopy of Multiple Coronary Arteries using Low Osmolar Contrast (ICD-10-PCS; principal; 2017-09-06 08:30)
DX: I21.4 Non-ST elevation (NSTEMI) myocardial infarction (principal); I44.7 Left bundle-branch block, unspecified; I08.1 Rheumatic disorders of both mitral and tricuspid valves; I69.928 Other speech and language deficits following unspecified cerebrovascular disease; E03.9 Hypothyroidism, unspecified; I65.22 Occlusion and stenosis of left carotid artery; I73.9 Peripheral vascular disease, unspecified; E78.2 Mixed hyperlipidemia; R20.1 Hypoesthesia of skin; I69.998 Other sequelae following unspecified cerebrovascular disease; Z98.51 Tubal ligation status; Z86.73 Personal history of transient ischemic attack (TIA), and cerebral infarction without residual deficits; Z87.891 Personal history of nicotine dependence; Z80.42 Family history of malignant neoplasm of prostate; Z72.89 Other problems related to lifestyle; Z82.49 Family history of ischemic heart disease and other diseases of the circulatory system; Z79.82 Long term (current) use of aspirin
CPT/HCPCS: 36415; 71010; 71020; 76937; 78582; 80048; 80053; 80061; 83605; 84484; 84520; 85025; 85730; 93005; 93306; 93458; 99156; 99157; A9270-GY; A9540; A9558; C1887; J0153; J1644; J1650; J2001; J2250; J2270; J2405; J3010